=== PATIENT | male | born 1960 | race Caucasian/White ===

== ENCOUNTER 2019-09-18 11:32 | Inpatient (IN) | payer BC ==
[2019-09-13 15:42] LABS: BASOPHILS # (AUTO) 0.1 X10'3 (0-0.2); BASOPHILS % (AUTO) 1.3 % (0-1); EOSINOPHILS # (AUTO) 0.2 X10'3 (0-0.9); EOSINOPHILS % (AUTO) 3.6 % (0-6); LYMPHOCYTES # (AUTO) 1.7 X10'3 (1.1-4.8); LYMPHOCYTES % (AUTO) 26.3 % (21-51); MEAN CORPUSCULAR HEMOGLOBIN 28.8 PG (27.0-31.0); MEAN CORPUSCULAR HGB CONC 33.9 g/dL (33.0-36.5); MEAN CORPUSCULAR VOLUME 84.9 FL (78-98); MONOCYTES # (AUTO) 0.6 X10'3 (0-0.9); MONOCYTES % (AUTO) 8.9 % (2-12); NEUTROPHILS # (AUTO) 3.9 X10'3 (1.8-7.7); NEUTROPHILS % (AUTO) 59.9 % (42-75); PRE OP HEMATOCRIT 47.1 % (42.0-52.0); PRE OP PLATELET COUNT 232 X10'3 (140-440); RED BLOOD COUNT 5.55 X10'6 (4.70-6.10); RED CELL DISTRIBUTION WIDTH 14.4 % (11.5-14.5)
[2019-09-13 15:59] LABS: PRE OP PROTIME 10.3 SECONDS (9.0-12.0)
[2019-09-13 16:15] LABS: ALBUMIN 4.1 G/DL (3.4-5.0); ALBUMIN/GLOBULIN RATIO 1.1 (1.1-1.5); ALKALINE PHOSPHATASE 148 IU/L (46-116); BLOOD UREA NITROGEN 14 MG/DL (7-18); BUN/CREATININE RATIO 15.9 (5.4-32.0); CALCIUM 8.7 MG/DL (8.5-10.1); CHLORIDE 107 MMOL/L (99-107); CREATININE 0.88 MG/DL (0.60-1.10); PRE OP ALT 43 U/L (30-65); PRE OP ANION GAP 9 (8-16); PRE OP AST 26 U/L (10-37); PRE OP BILIRUB, TOTAL 0.6 MG/DL (0.0-1.0); PRE OP GLUCOSE 90 MG/DL (70-104); PRE OP SODIUM 141 MMOL/L (135-145); TOTAL CARBON DIOXIDE 25.5 MMOL/L (24-32); eGFR 89 ML/MIN
[2019-09-18] VITALS (17 sets, daily range): BP systolic 94–147; BP diastolic 57–89
[~2019-09-18] VITALS: Ht 177.8 cm; Wt 90.6 kg
[~2019-09-18 11:32] MED LIST: NO HOME MEDS
[2019-09-18] MEDS ORDERED: tranexamic acid inj. 1,000 MG in normal saline 100 ML IV ONE ×2 (11:45→15:15)
[2019-09-18] MEDS ORDERED: cefazolin/dext.iso 2gm/50ml 50 ML IV ONE (11:45)
[2019-09-18] MEDS ORDERED: vancomycin inj 1,500 MG in normal saline 300ml IV soln IV ONE (11:45)
[2019-09-18] MEDS ORDERED: famotidine 20mg tablet PO ONE (11:45)
[2019-09-18] MEDS ORDERED: ringers solution, lacted 1,000 ML IV SCH ×2 (11:45→14:51)
[2019-09-18] MEDS ORDERED: MIDAZolam 1mg/ml 10ml vial ONE (12:56)
[2019-09-18] MEDS ORDERED: fentaNYL/PF 50MCG/1 ML 2ML syringe ONE (12:56)
[2019-09-18] MEDS ORDERED: ceFAZolin 1000mg inj ONE ×3 (13:28)
[2019-09-18] MEDS ORDERED: ondansetron/PF 4mg/2ml inj IV PRN ×2 (14:55→15:45)
[2019-09-18] MEDS ORDERED: meperidine/PF 25mg/ml syringe IV PRN ×3 (14:55)
[2019-09-18] MEDS ORDERED: morphine 4 MG/ML inj SYRINge IV PRN ×2 (14:55)
[2019-09-18] MEDS ORDERED: proCHLORperazine 10 MG/2 ml inj IV PRN (14:55)
[2019-09-18] MEDS ORDERED: dexamethasone sod phosphate 4mg/ml inj. ONE (15:23)
[2019-09-18] MEDS ORDERED: diphenhydrAMINE 25mg capsule PO PRN ×2 (15:45)
[2019-09-18] MEDS ORDERED: bisacodyl 10mg suppository rectal RC PRN (15:45)
[2019-09-18] MEDS ORDERED: acetaminophen 325mg tablet PO PRN (15:45)
[2019-09-18] MEDS ORDERED: magnesium hydroxide 30ml (MOM) UD suspension PO PRN (15:45)
[2019-09-18] MEDS ORDERED: HYDROmorphone inj. 0.5 MG/0.5 ML DISP.SYRIN IV PRN (15:45)
[2019-09-18] MEDS ORDERED: HYDROcodone/acetaminophen 10/325mg tab PO PRN (15:45)
--- NOTE | 2019-09-18 15:52 | NUR ---
Received from OR via , accompanied by Anesthesiologist DR COX and report given by Anesthesiolgist. AWAKE AND KALEY PAIN. VITALS STABLE. DRESSING DI. SENSATION TO BILAT FEET. SOMMERS WITH CLEAR URINE.
[2019-09-18] MEDS: ROPIVAcaine 0.2%/PF PAIN PUMP 400 ML ADDCANAL SCH (16:07)
--- NOTE | 2019-09-18 16:52 | NUR ---
Report called to receiving nurse. Transferred via [facility] Belongings . Special Issues communicated to receiving nurse. AWAKE AND ORIENTED. VITALS STABLE. DRESSING DI. STATES PAIN IMPROVING. TO ORTHO RM [id number] ATN THJIS TIME.
[2019-09-18] MEDS ORDERED: aspirin 325mg tablet PO SCH (17:30)
[2019-09-18] MEDS: ceFAZolin 1GM/D5W- ADD-VANTAGE 50 ML IV SCH ×3 (17:44→23:30)
[2019-09-18] MEDS: potassium Cl 20mEq in NS 1,000 ML IV SCH (17:45)
--- NOTE | 2019-09-18 18:06 | NUR ---
REPORT GIVEN TO MADISON ROTHMAN
[2019-09-18] MEDS ORDERED: vancomycin/NS 1 GM ADD-VANTAGE 250 ML IV SCH (20:00)
[2019-09-18] MEDS: sennosides 8.6mg tablet PO SCH (20:06)
[2019-09-19] VITALS (9 sets, daily range): BP systolic 107–134; BP diastolic 64–86
[2019-09-19 05:50] LABS: BASOPHILS % (AUTO) 0.3 % (0-1); EOSINOPHILS % (AUTO) 0 % (0-6); HEMATOCRIT 38.5 % (42.0-52.0); HEMOGLOBIN 13.2 g/dl (14.0-17.9); LYMPHOCYTES # (AUTO) 0.7 X10'3 (1.1-4.8); LYMPHOCYTES % (AUTO) 6.9 % (21-51); MEAN CORPUSCULAR HEMOGLOBIN 29.2 PG (27.0-31.0); MEAN CORPUSCULAR HGB CONC 34.1 g/dL (33.0-36.5); MEAN CORPUSCULAR VOLUME 85.6 FL (78-98); MEAN PLATELET VOLUME 9.2 FL (7.4-10.4); MONOCYTES # (AUTO) 0.9 X10'3 (0-0.9); MONOCYTES % (AUTO) 8.5 % (2-12); NEUTROPHILS # (AUTO) 8.9 X10'3 (1.8-7.7); NEUTROPHILS % (AUTO) 84.3 % (42-75); PLATELET COUNT 192 X10'3 (140-440); RED CELL DISTRIBUTION WIDTH 14.4 % (11.5-14.5); WHITE BLOOD COUNT 10.6 X10'3 (4.5-11.0)
[2019-09-19] MEDS: HYDROcodone/acetaminophen 10/325mg tab PO PRN ×4 (05:54→21:18)
--- NOTE | 2019-09-19 06:02 | NUR ---
REPORT GIVEN TO STEPHAN SMITH.
[2019-09-19 06:09] LABS: ANION GAP 11 (8-16); BLOOD UREA NITROGEN 12 MG/DL (7-18); BUN/CREATININE RATIO 15.8 (5.4-32.0); CHLORIDE 106 MMOL/L (99-107); CREATININE 0.76 MG/DL (0.60-1.10); GLUCOSE 115 MG/DL (70-104); POTASSIUM 4.1 MMOL/L (3.5-5.1); SODIUM 140 MMOL/L (135-145); TOTAL CARBON DIOXIDE 23.4 MMOL/L (24-32)
[2019-09-19 06:10] LABS: ALANINE AMINOTRANSFERASE 31 U/L (12-78); ALBUMIN 3.1 G/DL (3.4-5.0); ALBUMIN/GLOBULIN RATIO 1.1 (1.1-1.5); ALKALINE PHOSPHATASE 105 IU/L (46-116); ASPARTATE AMINO TRANSFERASE 26 U/L (10-37); BILIRUBIN,TOTAL 0.9 MG/DL (0.1-1.0); CALCIUM 8.1 MG/DL (8.5-10.1); eGFR > 90 ML/MIN
[2019-09-19] MEDS: aspirin 81mg tablet.DR PO SCH ×2 (08:57→17:43)
[2019-09-19] MEDS: potassium Cl 20mEq in NS 1,000 ML IV SCH ×2 (10:00→18:21)
--- NOTE | 2019-09-19 11:34 | NUR ---
Joint replacement consult: Pt seen by ALLAN for written/verbal high protein ed w/ RD contact information provided. Pt declines additional proteins at this time. Will continue to monitor. Addendum: 09/19/19 at [address] Amended: Links added.
--- NOTE | 2019-09-19 11:37 | NUR ---
Student Medication Administration: For this medication-pass time frame [id number], all medications were reviewed, administered and documented per hospital policy by Fabien Schulte. Student documentation:I have reviewed and agree with all interventions, assessments performed and documented by Fabien Schulte.
--- NOTE | 2019-09-19 11:39 | NUR ---
Educated patient use of Incentive spirometer QH. Patient demonstrates ability to hold 2,000-2,250 mLs < 1 second.
--- NOTE | 2019-09-19 11:55 | NUR ---
Ice pack changed 11:45 Addendum: 09/19/19 at 1155 by Fabien SEQUEIRA Amended: Links added.
--- NOTE | 2019-09-19 18:25 | NUR ---
RECEIVED REPORT FROM SARAH ROTHMAN AND ASSUMED PATIENT CARE
--- NOTE | 2019-09-19 18:25 | NUR ---
Report to Judith ROTHMAN
[2019-09-19] MEDS: sennosides 8.6mg tablet PO SCH (21:18)
[2019-09-19] MEDS: ROPIVAcaine 0.2%/PF PAIN PUMP 400 ML ADDCANAL SCH (21:20)
[2019-09-20] MEDS: HYDROcodone/acetaminophen 10/325mg tab PO PRN ×2 (05:37→11:42)
--- NOTE | 2019-09-20 06:08 | NUR ---
REPORT GIVEN TO YARITZA ROTHMAN
[2019-09-20 06:20] VITALS: BP 134/82
[2019-09-20 06:22] LABS: BASOPHILS % (AUTO) 0.4 % (0-1); EOSINOPHILS % (AUTO) 0.2 % (0-6); HEMATOCRIT 38.2 % (42.0-52.0); LYMPHOCYTES # (AUTO) 0.9 X10'3 (1.1-4.8); LYMPHOCYTES % (AUTO) 8.2 % (21-51); MEAN CORPUSCULAR HEMOGLOBIN 29.2 PG (27.0-31.0); MEAN PLATELET VOLUME 9.3 FL (7.4-10.4); MONOCYTES # (AUTO) 1.1 X10'3 (0-0.9); MONOCYTES % (AUTO) 10.8 % (2-12); NEUTROPHILS # (AUTO) 8.5 X10'3 (1.8-7.7); NEUTROPHILS % (AUTO) 80.4 % (42-75); PLATELET COUNT 179 X10'3 (140-440); RED BLOOD COUNT 4.44 X10'6 (4.70-6.10); RED CELL DISTRIBUTION WIDTH 14.7 % (11.5-14.5); WHITE BLOOD COUNT 10.6 X10'3 (4.5-11.0)
--- NOTE | 2019-09-20 06:26 | NUR ---
Patient in room ORTHO 4015. I have received report from Riley ROTHMAN and had the opportunity to ask questions and assume patient care.
[2019-09-20 06:35] LABS: ALANINE AMINOTRANSFERASE 54 U/L (12-78); ALBUMIN 3.1 G/DL (3.4-5.0); ALBUMIN/GLOBULIN RATIO 0.9 (1.1-1.5); ALKALINE PHOSPHATASE 120 IU/L (46-116); ANION GAP 9 (8-16); ASPARTATE AMINO TRANSFERASE 56 U/L (10-37); BILIRUBIN,TOTAL 0.8 MG/DL (0.1-1.0); BLOOD UREA NITROGEN 13 MG/DL (7-18); BUN/CREATININE RATIO 13.4 (5.4-32.0); CALCIUM 8.2 MG/DL (8.5-10.1); CHLORIDE 105 MMOL/L (99-107); CREATININE 0.97 MG/DL (0.60-1.10); GLUCOSE 126 MG/DL (70-104); SODIUM 138 MMOL/L (135-145); TOTAL CARBON DIOXIDE 23.6 MMOL/L (24-32); TOTAL PROTEIN 6.4 G/DL (6.4-8.2); eGFR 79 ML/MIN
[2019-09-20] MEDS: aspirin 81mg tablet.DR PO SCH (08:10)
[2019-09-20 10:00] VITALS: BP 126/87
[2019-09-20] MEDS ORDERED: ASPI-1071 PO (11:05)
[2019-09-20] MEDS ORDERED: HYDR-4353 PO (11:05)
--- NOTE | 2019-09-20 11:56 | NUR ---
Student documentation: I have reviewed all interventions, assessments performed and documented by Robi Infante. Student Medication Administration: For this medication-pass time frame, all medication were reviewed, dispensed, administered and documented per hospital policy by Robi Infante.
--- NOTE | 2019-09-20 12:45 | NUR ---
Patient discharged with his sister. Paper copy of norco given to sister for them to shredder picker form local pharmacy. Patient taught all discharge instructions and was taken out in wheel chair to sisters vehicle.
== END 2019-09-20 12:45 | disposition home or self-care (01) | DRG 470 ==
LOC: PAS IN 11:32 → EDSTATUS 13:45 → ORTHO 4S 17:00
PROVIDERS: ADMIT Orthopaedic Surgery; ATTEND Orthopaedic Surgery
PROC: 3E0T3BZ Introduction of Anesthetic Agent into Peripheral Nerves and Plexi, Percutaneous Approach (ICD-10-PCS; 2019-09-18)
PROC: 0SRD069 Replacement of Left Knee Joint with Oxidized Zirconium on Polyethylene Synthetic Substitute, Cemented, Open Approach (ICD-10-PCS; principal; 2019-09-18 12:44)
DX: M17.12 Unilateral primary osteoarthritis, left knee (principal); D62 Acute posthemorrhagic anemia; F17.220 Nicotine dependence, chewing tobacco, uncomplicated; Z91.013 Allergy to seafood
CPT/HCPCS: Z7506; Z7508; 36415; 80053; 82948; 85025; 85610; 85730; 86885; 86900; 86901; 86920; 87081; 97110; 97112; 97116; 97161; 97530; A4215; A6455; A7000; C1713; C1758; C1776; G0378; J0690; J1100; J1170; J2175; J2250; J2405; J2795; J3010; J3370; J3480; J7120